=== PATIENT | male | born 1935 | race Caucasian/White ===

== ENCOUNTER 2019-07-23 07:03 | Outpatient (CLI) | payer MEDICARE, SELFPAY ==
[2019-07-23 07:49] LABS: Hematocrit 33.4 % (42.0-52.0); Hemoglobin 10.2 g/dL (14.0-18.0); Mean Corpuscular HGB Conc 30.5 g/dl (32-36); Mean Corpuscular Hemoglobin 26.2 pg (26-34); Mean Corpuscular Volume 85.6 fl (80-100); Mean Platelet Volume 9.1 fl (7.4-10.4); Platelet Count Result 272 k/mm3 (150-375); Red Cell Distribution Width 16.3 % (11.5-14.5); White Blood Count 6.9 K/mm3 (4.5-10.0)
== END 2019-07-23 07:04 | disposition home or self-care (01) ==
PROVIDERS: PCP Family Medicine; Visit Provider Internal Medicine
DX: D64.9 Anemia, unspecified (principal)
CPT/HCPCS: 36415; 85027

== ENCOUNTER 2023-02-21 14:11 | Emergency (ER) | payer MEDICARE, SELFPAY ==
[2023-02-21] VITALS (8 sets, daily range): BP systolic 140–170; BP diastolic 60–95; PULSE 49–71; RESP 16–21; TEMP 36.3–36.6; O2SAT 95–98
--- NOTE | ~2023-02-21 | CT_ITS ---
CT of the Abdomen and Pelvis: Indication: Nausea and vomiting Technique: 2.5 mm axial scans were obtained through the abdomen and pelvis following intravenous adm inistration of 100 cc of Omnipaque 350. Dose reduction technique was used on this scan by utilizing a utomated exposure control and iterative reconstruction technique. The dose-length product (DLP) was 1 255.97 mGy-cm. Findings: Scans through the lung bases demonstrate calcified right middle lobe granuloma. The liver, spleen, pancreas, and adrenal glands are within normal limits. Calcified gallstone present . Multiple bilateral renal cysts are present. Right lower pole cyst demonstrates thin septations. The re are atherosclerotic calcifications of the aorta. No lymphadenopathy. No bowel obstruction or bowel wall thickening. There is no evidence to suggest acute appendicitis. Images through the pelvis were performed. Urinary bladder unremarkable. Prostate gland is enlarged. N o ascites. Impression: Cholelithiasis. Multiple benign-appearing bilateral renal cysts. Reviewed, dictated and finalized at [facility] [place]. Impression: Cholelithiasis. Multiple benign-appearing bilateral renal cysts.
[2023-02-21 14:44] LABS: Basophils Absolute Auto 0.1 K/mm3 (0.0-0.1); Basophils Percent Auto 0.5 % (0.2-1.2); Eosinophils Absolute Auto 0.1 K/mm3 (0-0.3); Eosinophils Percent Auto 0.5 % (0-4.4); Hemoglobin 14.6 g/dL (14.0-18.0); Immature Granulocyte Absolute 0.06 K/mm3 (0.00-0.031); Immature Granulocyte Percent A 0.6 % (0-0.5); Lymphocytes Absolute Auto 1.02 K/mm3 (0.9-3.2); Lymphocytes Percent Auto 9.8 % (18.3-44.2); Mean Corpuscular HGB Conc 32.4 g/dl (32-36); Mean Corpuscular Hemoglobin 29.9 pg (26-34); Mean Platelet Volume 9.2 fl (7.4-10.4); Monocytes Absolute Auto 0.4 K/mm3 (0.1-0.6); Monocytes Percent Auto 3.5 % (2.6-8.5); Neutrophils Absolute Auto 8.9 K/mm3 (1.3-6.7); Neutrophils Percent Auto 85.1 % (45.5-73.1); Platelet Count Result 251 k/mm3 (150-375); Red Blood Count 4.89 M/mm3 (4.6-6.20); Red Cell Distribution Width 12.8 % (11.5-14.5); White Blood Count 10.4 K/mm3 (4.5-10.0)
[2023-02-21 14:54] LABS: Alanine Aminotransferase 26 U/L (6-50); Albumin Level 4.6 g/dL (3.5-5.1); Alkaline Phosphatase 62 U/L (38-126); Anion Gap 6 mmol/L (8-16); Aspartate Amino Transferase 26 U/L (17-59); Bilirubin,Total 0.5 mg/dL (0.2-1.3); Blood Urea Nitrogen 23 mg/dL (9-20); Calcium 10.1 mg/dL (8.4-10.2); Carbon Dioxide 34 mmol/L (22-30); Chloride 99 mmol/L (98-107); Estimated CRCL calculation 60 ml/min; Estimated Glomerular Filt Rate > 60; Glucose 209 mg/dL (65-110); Lipase 39 U/L (23-300); Potassium 4.7 mmol/L (3.4-5.0); Sodium 139 mmol/L (137-145)
--- NOTE | 2023-02-21 15:27 | ED.GENADULT ---
HPI - General Adult General Chief complaint: Nausea/Vomiting/Diarrhea Stated complaint: N/V S/P EATING TOMATOES Time Seen by Provider: 02/21/23 15:16 Source: patient Mode of arrival: ambulatory Limitations: no limitations History of Present Illness HPI narrative: This is an 87-year-old male with PMH of BPH, HLD, HTN, M?ni?re's who presents to the ED with chief complaint of nausea and vomiting sudden onset today. States he was eating tomatoes this morning when he started to have some upper abdominal discomfort and 1 episode of emesis. He is here with his and his son who states that patient eats lots of tomatoes. Patient states that he has had a history of a gastric ulcer in the past. He reports 1 episode of loose stools. As I am talking to him he states that he has no abdominal pain. He was given Zofran 4 mg IV in route and no subsequent vomiting. Patient states he was feeling fine yesterday. He denies fevers, chills, chest pain, shortness of breath, cough, weakness, Related Data Home Medications Medication Instructions Recorded Confirmed amlodipine 5 mg tablet 5 mg PO DAILY 07/14/19 07/14/19 atorvastatin 80 mg tablet 80 mg PO DAILY 07/14/19 07/14/19 metoprolol succinate 25 mg 25 mg PO DAILY 07/14/19 07/14/19 tablet,extended release 24 hr tamsulosin 0.4 mg capsule 0.8 mg PO DAILY 07/14/19 07/14/19 tamsulosin 0.4 mg capsule 0.4 mg PO QHS 08/20/20 Allergies Allergy/AdvReac Type Severity Reaction Status Date / Time No Known Allergies Allergy Mild Verified 02/21/23 15:24 Review of Systems Review of Systems: All systems as dictated in HPI [facility] Past Medical History Medical History (Updated 02/21/23 @ 17:36 by Adelso Lance PA-C) Benign prostatic hyperplasia History of MRSA infection Hyperlipidemia Hypertension Kidney stones Menieres disease Surgical History Surgical History (Updated 07/14/19 @ 12:36 by Lilliam Martinez PA-C) Status post cataract extraction Family History Family History Sibling Alzheimer disease Father Diabetes mellitus Renal failure Social History Social History (Updated 08/20/20 @ 10:48 by Christiane Syed [facility]) Social History: Mr. Woodward is and lives with his in [place]. 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 He designates his , Sera, as his surrogate decision maker and he wishes to be a full code. He is a lifelong nonsmoker and denies alcohol and drug use. Smoking status: Never smoker Alcohol intake: never Substance use: never Substance use type: does not use Gender identity (if verbalized by the patient): Male Spiritual care concerns: No Agree to blood products: Yes Exam Narrative: GENERAL: Well-appearing, well-nourished, and in no acute distress. HEAD: Normocephalic, atraumatic. EYES: PERRLA and EOMI. ENT: Nares clear, no rhinorrhea or epistaxis. Mucous membranes moist. Oropharynx without tonsillar hypertrophy exudate or other lesions. NECK: Supple. No adenopathy or masses. CHEST: No respiratory distress. Clear to auscultation. No wheezes rales or rhonchi HEART: Regular rate and rhythm. No murmur heard. Normal peripheral pulses. ABDOMEN: Soft, nontender, nondistended, normal active bowel sounds. MSK: Normal range of motion. No edema. SKIN: Warm, dry, no rash. NEURO: Alert and oriented x3. No focal deficits. PSYCH: Normal mood and affect. Course Course Emergency Course: Reevaluation 174: Patient is feeling much better. He states he is completely symptom-free and would like to go home Vital Signs Vital signs: Vital Signs Temperature 97.4 F L 02/21/23 14:28 Pulse Rate 52 L 02/21/23 14:28 Respiratory Rate 20 02/21/23 14:28 Blood Pressure 149/60 H 02/21/23 14:28 Pulse Oximetry 96 02/21/23 14:28 Oxygen Delivery Room Air 02/21/23 14:28 Temperature 97.4
[2023-02-21 16:08] LABS: Appearance Urine Cloudy (Clear); Bacteria Urine None Seen /hpf; Bilirubin Urine Negative (Negative); Blood Urine Negative (Negative); Color Urine Yellow (Yellow); Glucose Urine UA Negative (Negative); Ketones Urine 1+ mg/dL (Negative); Leukocyte Esterase Ur Negative LEU/UL (Negative); Need Manual Microscopic Reviewed; Nitrate Urine Negative (Negative); Non Pathogenic Casts 0-2; Protein Urine 2+ mg/dL (Negative); RBC Urine 0-2 /hpf (0-2); Specific Grav Ur 1.022 (1.001-1.035); Squamous Epithelial Cell Urine None seen /hpf (Few); WBC Urine 0-5 /hpf
[2023-02-21 16:09] LABS: Add Urine Microscopic? YES
[2023-02-21] MEDS: SODIUM CHLORIDE 0.9% IV 1,000 ML 999 ML IV CONT (16:54)
== END 2023-02-21 18:00 | disposition home or self-care (01) ==
PROVIDERS: Emergency Medicine; Emergency Provider Physician Assistant; PCP Family Medicine
DX: K29.70 Gastritis, unspecified, without bleeding (principal); E78.5 Hyperlipidemia, unspecified; I10 Essential (primary) hypertension
CPT/HCPCS: 36415; 74177; 80053; 81001; 83690; 85025; 96360; 99284; J7030; Q9967

== ENCOUNTER 2024-01-21 14:33 | Emergency (ER) | payer MEDICARE, SELFPAY ==
--- NOTE | ~2024-01-21 | XR_ITS ---
SINGLE AP VIEW PELVIS Ordering provider: Adithya Orellana MD History: . Fall . Comparison: None. FINDINGS: BONES: No acute fracture or dislocation. HIP JOINT SPACES: Mild osteoarthritic changes. SACROILIAC JOINT SPACES/LUMBAR SPINE: The sacroiliac joint spaces are normal. Mild degenerative andersen es of the visualized lower lumbar spine. PUBIC SYMPHYSIS: Mild pubic symphysitis. SOFT TISSUES: Normal. IMPRESSION: No acute osseous abnormality pelvis. Reviewed, dictated and finalized at location A.
--- NOTE | ~2024-01-21 | CT_ITS ---
EXAMINATION: CT chest abdomen pelvis w con DATE: 01/21/2024 15:32 INDICATION: Left lower rib pain. Fall. TECHNIQUE: Computed tomography (CT) of the chest, abdomen, and pelvis was performed with 100 mL Omnip aque 350 intravenous contrast. Automated exposure control and iterative reconstruction technique were employed. The dose-length product was 1268.82 mGy-cm. COMPARISON: CT abdomen and pelvis 03/23/2023 FINDINGS: CHEST CT: The lungs demonstrate mild atelectasis. Calcified pulmonary nodules and calcified hilar mediastinal l ymph nodes are consistent with old granulomatous disease. No pleural effusion. The thyroid is enlarge d and extends into the superior mediastinum. The heart size is normal. There are coronary artery calc ifications. No pericardial effusion. There is a fracture of left sixth rib. There are bridging endpla te osteophytes at multiple levels in the spine, consistent with diffuse idiopathic skeletal hyperosto sis (DISH). ABDOMEN/PELVIS CT: Calcifications in the liver and spleen are consistent with old granulomatous disease. There is a gall stone in the gallbladder, which is normal in size. There is a 10 mm cyst in the tail of the pancreas, likely benign. There are cysts in the kidneys measuring up to 7.1 cm on the right. There are no dila queenie loops of bowel. The appendix is normal. The prostate is moderately enlarged. There is diffuse anahi dder wall thickening, likely secondary to chronic outlet obstruction. There are no pathologically enl arged lymph nodes. There is no free intraperitoneal fluid. There is prominent fat in the left interna l canal that may be a hernia. There is severe lumbar spondylosis. IMPRESSION: 1. Fracture of left sixth rib. Reviewed, dictated and finalized at location A.
--- NOTE | ~2024-01-21 | XR_ITS ---
XR chest 1V portable Ordering provider: Adithya Orellana MD History: 88 years Male with . Fall Left rib apin . Comparison: July 14, 2019 FINDINGS: MEDIASTINUM: The cardiac silhouette is not enlarged. LUNGS: No infiltrates, effusions or pneumothorax. OTHER: No free air under the diaphragm. Degenerative changes of the spine. IMPRESSION: No acute cardiopulmonary pathology. Reviewed, dictated and finalized at location A.
[2024-01-21 14:43] VITALS: BP 139/75; PULSE 75; RESP 17; TEMP 36.7; O2SAT 95
--- NOTE | 2024-01-21 14:46 | ECG_ITS ---
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
[2024-01-21] MEDS: SODIUM CHLORIDE 0.9% IV 1,000 ML 999 ML IV CONT (15:11)
[2024-01-21] MEDS: ACETAMINOPHEN 500 MG TABLET 1000 MG PO (15:11)
[2024-01-21 15:25] LABS: Estimated Glomerular Filt Rate 36
[2024-01-21 15:26] LABS: Lactic Acid Reflex 0.9 mmol/L (0.7-2.0)
[2024-01-21 15:28] LABS: Alanine Aminotransferase 19 U/L (6-50); Albumin Level 4.7 g/dL (3.5-5.1); Alkaline Phosphatase 52 U/L (38-126); Anion Gap 13 mmol/L (4-12); Aspartate Amino Transferase 24 U/L (17-59); Basophils Absolute Auto 0.1 K/mm3 (0.0-0.1); Basophils Percent Auto 0.5 % (0.2-1.2); Bilirubin,Total 0.7 mg/dL (0.2-1.3); Blood Urea Nitrogen 44 mg/dL (9-20); Calcium 9.5 mg/dL (8.4-10.2); Carbon Dioxide 27 mmol/L (22-30); Chloride 99 mmol/L (98-107); Eosinophils Absolute Auto 0.4 K/mm3 (0-0.3); Eosinophils Percent Auto 3.6 % (0-4.4); Estimated Glomerular Filt Rate 41; Glucose 176 mg/dL (65-110); Hematocrit 44.6 % (42.0-52.0); Hemoglobin 14.8 g/dL (14.0-18.0); Immature Granulocyte Absolute 0.04 K/mm3 (0.00-0.031); Immature Granulocyte Percent A 0.4 % (0-0.5); Lipase 61 U/L (23-300); Lymphocytes Absolute Auto 1.71 K/mm3 (0.9-3.2); Mean Corpuscular HGB Conc 33.2 g/dl (32-36); Mean Corpuscular Volume 90.3 fl (80-100); Mean Platelet Volume 9.7 fl (7.4-10.4); Monocytes Absolute Auto 0.7 K/mm3 (0.1-0.6); Monocytes Percent Auto 6.6 % (2.6-8.5); Neutrophils Absolute Auto 7.2 K/mm3 (1.3-6.7); Neutrophils Percent Auto 71.9 % (45.5-73.1); Platelet Count Result 283 k/mm3 (150-375); Potassium 4.6 mmol/L (3.4-5.0); Red Blood Count 4.94 M/mm3 (4.6-6.20); Red Cell Distribution Width 13.1 % (11.5-14.5); Sodium 139 mmol/L (137-145); White Blood Count 10.1 K/mm3 (4.5-10.0)
[2024-01-21 15:32] LABS: Prothrombin Time 13.6 Seconds (11.1-14.7)
[2024-01-21 15:33] LABS: Partial Thromboplastin Time 36.5 Seconds (22.3-36.8)
[2024-01-21 15:38] LABS: Troponin I < 0.012 ng/mL (0.000-0.034)
--- NOTE | 2024-01-21 16:11 | ED.GENADULT ---
HPI - General Adult General Chief complaint: Fall Stated complaint: GLF History of Present Illness HPI narrative: this is a pleasant 80-year-old male presenting after a ground level fall at home. He was out doing lawn work when he tripped over a rake. He landed on his left side. He not strike his not lose consciousness. There is no prodrome before the fall was purely mechanical. This time patient is complaining of pain over his left ribcage no difficulty breathing, abdominal pain or other injuries. Related Data Home Medications Medication Instructions Recorded Confirmed amlodipine 5 mg tablet 5 mg PO DAILY 07/14/19 07/14/19 atorvastatin 80 mg tablet 80 mg PO DAILY 07/14/19 07/14/19 metoprolol succinate 25 mg 25 mg PO DAILY 07/14/19 07/14/19 tablet,extended release 24 hr tamsulosin 0.4 mg capsule 0.8 mg PO DAILY 07/14/19 07/14/19 tamsulosin 0.4 mg capsule 0.4 mg PO QHS 08/20/20 Allergies Allergy/AdvReac Type Severity Reaction Status Date / Time No Known Allergies Allergy Mild Verified 02/21/23 15:24 [facility] Past Medical History Medical History Benign prostatic hyperplasia History of MRSA infection Hyperlipidemia Hypertension Kidney stones Menieres disease Surgical History Surgical History Status post cataract extraction Family History Family History Sibling Alzheimer disease Father Diabetes mellitus Renal failure Social History Social History Social History: Mr. Woodward is and lives with his in [place]. 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 He designates his , Sera, as his surrogate decision maker and he wishes to be a full code. He is a lifelong nonsmoker and denies alcohol and drug use. Smoking status: Never smoker Alcohol intake: never Substance use: never Substance use type: does not use Gender identity (if verbalized by the patient): Male Spiritual care concerns: No Agree to blood products: Yes Exam Narrative: APPEARANCE: No apparent distress. A&O x4 Head: atraumatic. EYES: EOMI, NOSE: Atraumatic NECK: Trachea midline RESPIRATORY: No increased rate of breathing clear to auscultation CARDIOVASCULAR: RRR, no peripheral edema ABDOMINAL: Non-distended soft nontender MUSCULOSKELETAl: Head to exam performed. Tenderness over the left ribcage. no other injuries. NEURO: Alert. Moving 4/4 extremities SKIN:: Warm, dry. Normal color PSYCHIATRIC: Normal affect Course Vital Signs Vital signs: Vital Signs Temperature 98.1 F 01/21/24 14:43 Pulse Rate 75 01/21/24 14:43 Respiratory Rate 17 01/21/24 14:43 Blood Pressure 139/75 01/21/24 14:43 Pulse Oximetry 95 01/21/24 14:43 Oxygen Delivery Room Air 01/21/24 14:43 Temperature 98.1 F 01/21/24 14:43 Pulse Rate 75 01/21/24 14:43 Respiratory Rate 17 01/21/24 14:43 Blood Pressure 139/75 01/21/24 14:43 Pulse Oximetry 95 01/21/24 14:43 Oxygen Delivery Room Air 01/21/24 14:43 Medical Decision Making MDM Narrative Medical decision making narrative: -Course: 88 old male presenting for ground level fall. CT showed a isolated left 6th rib fracture with no other injuries. Patient given pain control. He is in no respiratory distress. Rest of his workup was significant for bump in his creatinine. He is receiving IV fluids. Patient educated on symptoms spirometer and discharged home with pain medication. Given return precautions for pneumonia. Two day follow-up with primary care ensure improvement in his creatinine -DDX includes but is not limited to: rib fracture, pneumothorax, hemothorax, intra-abdominal pathology -Independent interpretation of studies: labs reviewed. BUN 44
[2024-01-21 16:22] VITALS: BP 142/84; PULSE 80; RESP 16; O2SAT 98
== END 2024-01-21 16:41 | disposition home or self-care (01) ==
PROVIDERS: Emergency Provider Emergency Medicine; PCP Family Medicine
DX: S22.32XA Fracture of one rib, left side, initial encounter for closed fracture (principal); E78.5 Hyperlipidemia, unspecified; I10 Essential (primary) hypertension; W01.0XXA Fall on same level from slipping, tripping and stumbling without subsequent striking against object, initial encounter
CPT/HCPCS: 36415; 71045; 71260; 72170; 74177; 80053; 83605; 83690; 83735; 84484; 85025; 85610; 85730; 93005; 96360; 99284; A9270; J7030; Q9967